=== PATIENT | female | born 1995 | race Two or more races ===

== ENCOUNTER 2024-11-24 10:21 | Emergency (ER) | payer BC ==
[~2024-11-24] VITALS: Ht 167.6 cm; Wt 86.2 kg
[2024-11-24 10:57] VITALS: BP 128/96; TEMP 98.4; O2SAT 97
== END 2024-11-24 10:57 | disposition home or self-care (01) ==
LOC: ER 10:31
DX: J02.9 Acute pharyngitis, unspecified (principal); R50.9 Fever, unspecified